=== PATIENT | female | born 1955 | race Caucasian/White ===

== ENCOUNTER → 2021-07-07 | Day surgery (SDC) | payer OTHER, MEDICARE | END | disposition home or self-care (01) | LOC: FMAMMOTONE 10:23 | PROVIDERS: ATTEND Surgery | PROC: 0HBT3ZX Excision of Right Breast, Percutaneous Approach, Diagnostic (ICD-10-PCS; principal; 2021-07-07) | DX: N60.31 Fibrosclerosis of right breast (principal); N64.89 Other specified disorders of breast; R92.8 Other abnormal and inconclusive findings on diagnostic imaging of breast | CPT/HCPCS: 19081; 76098-TC-FY; 88305-TC ==

== ENCOUNTER 2022-03-18 04:12 | Day surgery (SDC) | payer OTHER, MEDICARE ==
[2022-03-16 15:06] VITALS: BMI 19.0
[2022-03-18] MEDS ORDERED: LIDOCAINE HCL 1%, 10 MG/ML (20ML VIAL) ONE (10:41)
[2022-03-18] MEDS ORDERED: ISOSULFAN BLUE 50 MG/5 ML VIAL SQ ONE (11:43)
[2022-03-18] MEDS ORDERED: PROPOFOL 20 ML ONE (12:01)
[2022-03-18] MEDS ORDERED: FENTANYL CITRATE/PF 50 MCG/ML VIAL ONE ×2 (12:01→12:49)
[2022-03-18] MEDS ORDERED: MIDAZOLAM HCL 2 MG/2 ML SINGLE DOSE VIAL ONE (12:02)
[2022-03-18] MEDS ORDERED: ceFAZolin SODIUM 1 GM VIAL IVPB ONE (12:32)
[2022-03-18] MEDS ORDERED: ceFAZolin SODIUM 1 GM VIAL ONE (12:33)
[2022-03-18] MEDS ORDERED: ONDANSETRON 4 MG/2 ML VIAL ONE (12:34)
[2022-03-18] MEDS ORDERED: DEXAMETHASONE SOD PHOSPHATE 4 MG/1 ML VIAL ONE (12:34)
[2022-03-18] MEDS ORDERED: LIDOCAINE HCL 1%, 10 MG/ML (20ML VIAL) INF ONE (12:37)
[2022-03-18] MEDS ORDERED: KETOROLAC TROMETHAMINE 30 MG/1 ML VIAL ONE (12:49)
[2022-03-18] MEDS ORDERED: ONDANSETRON 4 MG/2 ML VIAL IVPUSH PRN (13:07)
[2022-03-18] MEDS ORDERED: LACTATED RINGERS SOLUTION 1,000 ML IV SCH (13:15)
[2022-03-18 14:47] VITALS: RESP 20; TEMP 98.1
[2022-03-18 15:10] VITALS: BP 122/69; PULSE 64
== END 2022-03-18 15:11 | disposition home or self-care (01) ==
LOC: JASU-SURG 04:12
PROVIDERS: ATTEND Surgery
PROC: 0HBT0ZX Excision of Right Breast, Open Approach, Diagnostic (ICD-10-PCS; principal; 2022-03-18 11:30)
DX: N60.81 Other benign mammary dysplasias of right breast (principal); N60.11 Diffuse cystic mastopathy of right breast; N60.21 Fibroadenosis of right breast; Z85.3 Personal history of malignant neoplasm of breast
CPT/HCPCS: 19281; 76098-TC-FY; 88307-TC; 94760